=== PATIENT | male | born 2000 | race Two or more races ===

== ENCOUNTER 2020-01-13 22:32 | Emergency (ER) | payer SELFPAY ==
[~2020-01-13] VITALS: Ht 172.7 cm; Wt 78.4 kg
--- NOTE | 2020-01-13 22:48 | NUR ---
CHANGING INTO GOWN, SPEAKS FULL SENTENCES.
[2020-01-13] MEDS ORDERED: KETOROLAC 30 MG/1 ML ONE (23:13)
[2020-01-13] MEDS ORDERED: DEXAMETHASONE 4 MG TABLET ONE ×2 (23:13→23:14)
[2020-01-13] MEDS ORDERED: ACETAMINOPHEN 325 MG TABLET ONE (23:13)
--- NOTE | 2020-01-13 23:23 | NUR ---
PT C/O SORE THROAT, HAS MUFFLED VOICE. NO RASH NOTED. MEDICATED PER ORDER. NKDA
[2020-01-13] MEDS ORDERED: KETOROLAC 60 MG/2 ML IM ONE (23:30)
[2020-01-13] MEDS ORDERED: KETOROLAC 30 MG/1 ML IM ONE (23:30)
[2020-01-13] MEDS ORDERED: ACETAMINOPHEN 325 MG TABLET PO ONE (23:30)
[2020-01-13] MEDS ORDERED: DEXAMETHASONE 4 MG TABLET PO ONE (23:30)
[2020-01-13] MEDS ORDERED: PLEASE ENTER ALLERGIES MC SCH (23:30)
[2020-01-14 00:04] VITALS: BP 134/78
== END 2020-01-14 00:09 | disposition home or self-care (01) ==
LOC: ED 23:47
DX: B37.42 Candidal balanitis (principal); J02.0 Streptococcal pharyngitis; R00.0 Tachycardia, unspecified
CPT/HCPCS: 82962; 87880; 96372; 99283; J1885